=== PATIENT | male | born 2000 | race Caucasian/White ===

== ENCOUNTER 2019-01-23 14:36 | Inpatient (IN) | payer SELFPAY ==
[~2019-01-23] VITALS: Ht 170.2 cm; Wt 117.9 kg
--- NOTE | 2019-01-23 15:52 | PHYS DOC ---
Past Medical History Past Medical History: Diabetes-Type II Past Surgical History: No Surgical History Alcohol Use: None Drug Use: None Adult General Chief Complaint Chief Complaint: SKIN RASH/ABSCESS HPI HPI Patient is a 18 year old male who presents to the ER with complaints of tailbone pain and abscess for the last week. PT states he has had an abscess in this area before, approximately 1 year ago. Pt denies any fever, nausea, vomiting, diarrhea, cough, or shortness of breath. He reports that he is a type 2 diabetic and that his sugars have been consistently below 130 recently. He states that the pain is a 10/10 if any pressure is applied to his coccyx. Review of Systems Review of Systems Constitutional: Denies fever or chills [] Eyes: Denies change in visual acuity, redness, or eye pain [] HENT: Denies nasal congestion or sore throat [] Respiratory: Denies cough or shortness of breath [] Cardiovascular: No additional information not addressed in HPI [] GI: Denies abdominal pain, nausea, vomiting, or diarrhea [] : Denies dysuria or hematuria [] Musculoskeletal: Denies back pain or joint pain [] Integument: See HPI Neurologic: Denies headache Endocrine: Denies polyuria or polydipsia [] Complete systems were reviewed and found to be within normal limits, except as documented in this note. Current Medications Current Medications Current Medications Medications (Trade) Dose Ordered Sig/[facility] Start Time Stop Time Status Last Admin Dose Admin Ceftriaxone Sodium (Rocephin) 1 gm 1X ONCE 01/23/19 16:45 01/23/19 16:46 DC 01/23/19 17:10 1 GM Allergies Allergies Allergies Coded Allergies Type Severity Reaction Last Updated Verified No Known Drug Allergies 01/23/19 No Physical Exam Physical Exam Constitutional: Well developed, well nourished, no acute distress, non-toxic appearance, obese. [] HENT: Normocephalic, atraumatic, bilateral external ears normal, oropharynx moist, no oral exudates, nose normal. [] Eyes: conjunctiva normal, no discharge. [] Neck: Normal range of motion, no stridor. [] Cardiovascular:Heart rate regular rhythm Lungs & Thorax: Bilateral breath sounds clear to auscultation [] Skin: Warm, dry, no rash; erythema, warmth, and tenderness to palpation over pilonidal sinus consistent with pilonidal abscess Back: No tenderness Extremities: No cyanosis, ROM intact, no edema. [] Neurologic: Alert and oriented X 3, no focal deficits noted. [] Psychologic: Affect normal, judgement normal, mood normal. [] Current Patient Data Vital Signs Vital Signs Date Time Temp Pulse Resp B/P (MAP) Pulse Ox O2 Delivery O2 Flow Rate FiO2 01/23/19 15:00 98.2 88 15 123/86 (98) 97 Room Air 98.2 EKG EKG [] Radiology/Procedures Radiology/Procedures [] Course & Med Decision Making Course & Med Decision Making Pertinent Labs and Imaging studies reviewed. (See chart for details) dx: pilonidal abscess 1615- Spoke with Dr. Sharma will admit patient for pilonidal cyst, advised that there are pending CBC and BMP results, will order 1 gm IV rocephin and surgical consult. [] Dragon Disclaimer Dragon Disclaimer This electronic medical record was generated, in whole or in part, using a voice recognition dictation system. Departure Departure Impression: Primary Impression: Pilonidal abscess Disposition: ADMITTED INPATIENT Admitting Physician: FAYE (FARHAT) Condition: STABLE Referrals: NO PCP (PCP) FLORENCE GALLEGO JEEP MECH[employer]IC Jan 23, 2019 15:52
[2019-01-23] MEDS ORDERED: cefTRIAXone IV Push 1 GM VIAL. IVP ONE (16:45)
--- NOTE | 2019-01-23 17:35 | PDOC1 ---
History and Physical Date of Admission Date of Admission DATE: 01/23/19 TIME: 17:35 Past Medical History Past Medical History Past Medical History Past Medical History Past Medical History: Diabetes-Type II Past Surgical History: No Surgical History Alcohol Use: None Drug Use: None family hx obesity Family History Family History: High Cholestrol, Hypertension Social History Smoke: No ALCOHOL: none Drugs: None Current Problem List Problem List Problems Medical Problems: (1) Pilonidal abscess Status: Acute Current Medications Current Medications Current Medications Ceftriaxone Sodium (Rocephin) 1 gm 1X ONCE IVP Last administered on 01/23/19at 17:10; Start 01/23/19 at 16:45; Stop 01/23/19 at 16:46; Status DC Allergies Allergies: Coded Allergies: No Known Drug Allergies (Unverified , 01/23/19) ROS Review of System Review of Systems Review of Systems Constitutional: Denies fever or chills [] Eyes: Denies change in visual acuity, redness, or eye pain [] HENT: Denies nasal congestion or sore throat [] Respiratory: Denies cough or shortness of breath [] Cardiovascular: No additional information not addressed in HPI [] GI: Denies abdominal pain, nausea, vomiting, or diarrhea [] : Denies dysuria or hematuria [] Musculoskeletal: Denies back pain or joint pain [] Integument: See HPI Neurologic: Denies headache Endocrine: Denies polyuria or polydipsia [] 14 PT systems were reviewed and found to be within normal limits, except as documented Physical Exam Physical Exam Physical Exam Physical Exam Constitutional: Well developed, well nourished, no acute distress, non-toxic appearance, obese. [] HENT: Normocephalic, atraumatic, bilateral external ears normal, oropharynx moist, no oral exudates, nose normal. [] Eyes: conjunctiva normal, no discharge. [] Neck: Normal range of motion, no stridor. [] Cardiovascular:Heart rate regular rhythm Lungs & Thorax: Bilateral breath sounds clear to auscultation [] Skin: Warm, dry, no rash; erythema, warmth, and tenderness to palpation over pilonidal sinus consistent with pilonidal abscess Back: No tenderness Extremities: No cyanosis, ROM intact, no edema. [] Neurologic: Alert and oriented X 3, no focal deficits noted. [] Psychologic: Affect normal, judgement normal, mood normal. [] Vitals Vitals Vital Signs Date Time Temp Pulse Resp B/P (MAP) Pulse Ox O2 Delivery O2 Flow Rate FiO2 01/23/19 15:00 98.2 88 15 123/86 (98) 97 Room Air 98.2 VTE Prophylaxis Ordered VTE Prophylaxis Devices: Yes VTE Pharmacological Prophylaxi: Yes Assessment/Plan Assessment/Plan Impression: Pilonidal abscess DIABETES Morbid obesity ADMITTED iv rocephin gen surgery consult ss insulin dvt prophylaxis NISA DOUGHERTY MD Jan 23, 2019 17:35
[2019-01-23 17:47] LABS: CALCIUM 9.8 mg/dL (8.5-10.1); CREATININE 0.9 mg/dL (0.7-1.3); GFR 107.6; POTASSIUM 3.9 mmol/L (3.5-5.1)
[2019-01-23 18:08] LABS: BASO % 1 % (0-3); EOS % 1 % (0-3); HEMATOCRIT 49.9 % (39.0-53.0); HEMOGLOBIN 17.6 g/dL (13.0-17.5); LYMPH # 1.6 x10^3/uL (1.0-4.8); LYMPH % 19 % (24-48); MEAN CORPUSCULAR HEMOGLOBIN 32 pg (25-35); MEAN CORPUSCULAR HGB CONC 35 g/dL (31-37); MEAN CORPUSCULAR VOLUME 90 fL (79-100); MONO # 0.8 x10^3/uL (0.0-1.1); MONO % 10 % (0-9); NEUT # 6.1 x10^3uL (1.8-7.7); NEUT % 70 % (31-73); PLATELET COUNT 151 x10^3/uL (140-400); RED BLOOD COUNT 5.55 x10^6/uL (4.30-5.70); RED CELL DISTRIBUTION WIDTH 12.8 % (11.5-14.5); WHITE BLOOD COUNT 8.6 x10^3/uL (4.0-11.0)
--- NOTE | 2019-01-23 18:24 | NUR ---
Pt placed in room 438 and instructed in use of call light and room controls. I paged Dr Lima who said to go ahead and feed him tonight and make him NPO at midnight.
[2019-01-23] MEDS ORDERED: HYDROcodone/APAP 5/325MG 1 TAB TABLET PO ONE (19:00)
[2019-01-23 19:30] VITALS: BP 122/63
--- NOTE | 2019-01-23 20:23 | NUR ---
NURSING ASSESSMENT NOTE PT HAS BEEN DIAGNOSED WITH SLEEP APNEA. HE DID USE A CPAP MACHINE BUT IT WAS DAMAGED AND HAS NOT BEEN REPLACED. Addendum: 01/23/19 at 2031 by Halina Archuleta RN Amended: Links added.
[2019-01-23] MEDS ORDERED: guaiFENesin ORAL 200 MG/10 ML LIQUID. PO PRN (20:30)
[2019-01-23] MEDS ORDERED: cloNIDine HCL 0.1 MG TABLET PO PRN (20:30)
[2019-01-23] MEDS ORDERED: LORazepam 0.5 MG TABLET PO PRN (20:30)
[2019-01-23] MEDS ORDERED: ALBUTEROL SULFATE 2.5 MG/3 ML NEBU. NEB PRN (20:30)
[2019-01-23] MEDS ORDERED: SODIUM PHOSPHATES 19/7GM 133 ML ENEMA. PR PRN (20:30)
[2019-01-23] MEDS ORDERED: MAG HYDROX/ALUMINUM HYD/SIMETH 30 ML ORAL.SUSP PO PRN (20:30)
[2019-01-23] MEDS ORDERED: DOCUSATE SODIUM 100 MG CAPSULE. PO PRN (20:30)
[2019-01-23] MEDS ORDERED: ACETAMINOPHEN 325 MG TABLET. PO PRN (20:30)
[2019-01-23] MEDS ORDERED: ONDANSETRON PF 4 MG/2 ML VIAL. IV PRN (20:30)
[2019-01-23] MEDS ORDERED: METF500T16 PO (20:33)
[2019-01-23] MEDS: IV NORMAL SALINE 1000ML BAG 1,000 ML IV SCH (23:12)
[2019-01-23] MEDS: HYDROcodone/APAP 7.5/325MG 1 TAB TABLET PO PRN (23:12)
[2019-01-23 23:36] VITALS: BP 127/64
[2019-01-24] VITALS (12 sets, daily range): BP systolic 106–141; BP diastolic 46–74
[2019-01-24 04:19] LABS: BASO % 0 % (0-3); EOS # 0.1 x10^3/uL (0.0-0.7); EOS % 1 % (0-3); HEMATOCRIT 48.5 % (39.0-53.0); HEMOGLOBIN 17.2 g/dL (13.0-17.5); LYMPH # 2.1 x10^3/uL (1.0-4.8); LYMPH % 26 % (24-48); MEAN CORPUSCULAR HEMOGLOBIN 32 pg (25-35); MEAN CORPUSCULAR HGB CONC 35 g/dL (31-37); MEAN CORPUSCULAR VOLUME 90 fL (79-100); MONO % 12 % (0-9); NEUT # 5.1 x10^3uL (1.8-7.7); NEUT % 62 % (31-73); PLATELET COUNT 153 x10^3/uL (140-400); RED BLOOD COUNT 5.38 x10^6/uL (4.30-5.70); RED CELL DISTRIBUTION WIDTH 12.8 % (11.5-14.5); WHITE BLOOD COUNT 8.2 x10^3/uL (4.0-11.0)
[2019-01-24 04:29] LABS: CALCIUM 9.3 mg/dL (8.5-10.1); GFR 95.3; POTASSIUM 3.9 mmol/L (3.5-5.1)
[2019-01-24] MEDS: HYDROcodone/APAP 7.5/325MG 1 TAB TABLET PO PRN (05:38)
[2019-01-24] MEDS: IV NORMAL SALINE 1000ML BAG 1,000 ML IV SCH ×3 (07:00→17:00)
[2019-01-24] MEDS ORDERED: ENOXAPARIN 40 MG/0.4 ML SYRINGE. SQ SCH (09:00)
[2019-01-24] MEDS ORDERED: BUPIVAC MPF-EPI 0.5%-1:200000 30 ML VIAL. ONE (09:13)
[2019-01-24] MEDS ORDERED: IV RINGERS,LACTATED 1000ML 1,000 ML IV SCH (09:48)
--- NOTE | 2019-01-24 09:57 | PDOC2 ---
CONSULT Date of Consult Date of Consult DATE: 01/24/19 TIME: 09:50 Reason for Consult Reason for Consult: pilonidal cyst abscess Referring Physician Referring Physician: Zachary Identification/Chief Complaint Chief Complaint superior gluteal cleft pain Source Source: Chart review, Patient History of Present Illness Reason for Visit: 18 yo M with superior gluteal cleft pain and mass. Present previously and seen at [facility] ER and prescribed abx, with resolution. However, recurred and pt has noted significant pain and not been able to do activity. Notes not eating for two days secondary not being able to move. Past Medical History Endocrine: Diabetes (takes metformin) Past Surgical History Past Surgical History: Other (Extensive fracture of BUE as child) Family History Family History: High Cholestrol, Hypertension Social History No ALCOHOL: none Drugs: None Current Problem List Problem List Problems Medical Problems: (1) Pilonidal abscess Status: Acute Current Medications Current Medications Current Medications Ceftriaxone Sodium (Rocephin) 1 gm 1X ONCE IVP Last administered on 01/23/19at 17:10; Start 01/23/19 at 16:45; Stop 01/23/19 at 16:46; Status DC Acetaminophen/ Hydrocodone Bitart (Lortab 5/325) 1 tab 1X ONCE PO Last admin istered on 01/23/19at 18:40; Start 01/23/19 at 19:00; Stop 01/23/19 at 19:01; Status DC Sodium Chloride 1,000 ml @ 100 mls/hr Q10H IV Last administered on 01/23/19at 23:12; Start 01/23/19 at 21:00 Ondansetron HCl (Zofran) 4 mg PRN Q4HRS PRN IV NAUSEA/VOMITING 1ST CHOICE; Start 01/23/19 at 20:30 Acetaminophen (Tylenol) 650 mg PRN Q4HRS PRN PO TEMP OVER 100.4F OR MILD PAIN; Start 01/23/19 at 20:30 Al Hydroxide/Mg Hydroxide (Mylanta Plus Xs) 30 ml PRN DAILY PRN PO HEARTBURN / GAS; Start 01/23/19 at 20:30 Clonidine HCl (Catapres) 0.1 mg PRN Q6HRS PRN PO SBP>160 OR DBP>90; Start 01/23/19 at 20:30 Sodium Monofluorophosphate (Fleet Adult) 133 ml PRN DAILY PRN ID CONSTIPATION 2ND CHOICE; Start 01/23/19 at 20:30 Docusate Sodium (Colace) 100 mg PRN BID PRN PO CONSTIPATION 1ST CHOICE; Start 01/23/19 at 20:30 Albuterol Sulfate (Ventolin Neb Soln) 2.5 mg PRN Q4HRS PRN NEB SHORTNESS OF BREATH; Start 01/23/19 at 20:30 Guaifenesin (Robitussin) 200 mg PRN Q4HRS PRN PO COUGH 1ST CHOICE; Start 01/23/19 at 20:30 Lorazepam (Ativan) 0.5 mg PRN Q4HRS PRN PO ANXIETY / AGITATION; Start 01/23/19 at 20:30 Enoxaparin Sodium (Lovenox 40mg Syringe) 40 mg DAILY SQ ; Start 01/24/19 at 09:00 Acetaminophen/ Hydrocodone Bitart (Lortab 7.5/325) 1 tab PRN Q6HRS PRN PO SEVERE PAIN 7-10 Last administered on 01/24/19at 05:38; Start 01/23/19 at 23:00 Active Scripts Active Reported Metformin Hcl 500 Mg Tablet 500 Mg PO BIDWMEALS Allergies Allergies: Coded Allergies: No Known Drug Allergies (Unverified , 01/23/19) ROS Skin: Yes Other (skin pain and abscess as above) Physical Exam General: Alert, Oriented X3, Cooperative, mild distress, Other (laying on side, secondary to pain, morbid obesity) HEENT: Atraumatic Lungs: Normal air movement Abdomen: Soft, No tenderness Skin: Other (3 cm erythematous, fluctuant mass in superior gluteal cleft) Vitals VITALS Vital Signs Date Time Temp Pulse Resp B/P (MAP) Pulse Ox O2 Delivery O2 Flow Rate FiO2 01/24/19 07:00 98.2 85 18 121/64 (83) 96 Room Air 98.2 Labs Labs Laboratory Tests Test 01/23/19 17:25 01/23/19 21:06 01/24/19 04:00 White Blood Count 8.6 x10^3/uL (4.0-11.0) 8.2 x10^3/uL (4.0-11.0) Red Blood Count 5.55 x10^6/uL (4.30-5.70) 5.38 x10^6/uL (4.30-5.70) Hemoglobin 17.6 g/dL (13.0-17.5) 17.2 g/dL (13.0-17.5) Hematocrit 49.9 % (39.0-53.0) 48.5 % (39.0-53.0) Mean Corpuscular Volume 90 fL (79-100) 90 fL (79-100) Mean Corpuscular Hemoglobin 32 pg (25-35) 32 pg (25-35) Mean Corpuscular Hemoglobin Concent 35 g/dL (31-37) 35 g/dL (31-37) Red Cell Distribution Width 12.8 % (11.5-14.5) 12.8 % (11.5-14.5) Platelet Count 151 x10^3/uL (140-400) 153 x10^3/uL (140-400) Neutrophils (%) (Auto) 70 % (31-73) 62 % (31-73) Lymphocytes (%) (Auto) 19 % (24-48) 26 % (24-48) Monocytes (%) (Auto) 10 % (0-9) 12 % (0-9) Eosinophils (%) (Auto) 1 % (0-3) 1 % (0-3) Basophils (%) (Auto) 1 % (0-3) 0 % (0-3) Neutrophils # (Auto) 6.1 x10^3uL (1.8-7.7) 5.1 x10^3uL (1.8-7.7) Lymphocytes # (Auto) 1.6 x10^3/uL (1.0-4.8) 2.1 x10^3/uL (1.0-4.8) Monocytes # (Auto) 0.8 x10^3/uL (0.0-1.1) 1.0 x10^3/uL (0.0-1.1) Eosinophils # (Auto) 0.0 x10^3/uL (0.0-0.7) 0.1 x10^3/uL (0.0-0.7) Basophils # (Auto) 0.0 x10^3/uL (0.0-0.2) 0.0 x10^3/uL (0.0-0.2) Sodium Level 138 mmol/L (136-145) 137 mmol/L (136-145) Potassium Level 3.9 mmol/L (3.5-5.1) 3.9 mmol/L (3.5-5.1) Chloride Level 102 mmol/L (98-107) 101 mmol/L (98-107) Carbon Dioxide Level 26 mmol/L (21-32) 27 mmol/L (21-32) Anion Gap 10 (6-14) 9 (6-14) Blood Urea Nitrogen 11 mg/dL (8-26) 13 mg/dL (8-26) Creatinine 0.9 mg/dL (0.7-1.3) 1.0 mg/dL (0.7-1.3) Estimated GFR (Cockcroft-Gault) 107.6 95.3 Glucose Level 161 mg/dL (70-99) 156 mg/dL (70-99) Calcium Level 9.8 mg/dL (8.5-10.1) 9.3 mg/dL (8.5-10.1) Glucose (Fingerstick) 170 mg/dL (70-99) Laboratory Tests Test 01/23/19 17:25 01/23/19 21:06 01/24/19 04:00 White Blood Count 8.6 x10^3/uL (4.0-11.0) 8.2 x10^3/uL (4.0-11.0) Red Blood Count 5.55 x10^6/uL (4.30-5.70) 5.38 x10^6/uL (4.30-5.70) Hemoglobin 17.6 g/dL (13.0-17.5) 17.2 g/dL (13.0-17.5) Hematocrit 49.9 % (39.0-53.0) 48.5 % (39.0-53.0) Mean Corpuscular Volume 90 fL (79-100) 90 fL (79-100) Mean Corpuscular Hemoglobin 32 pg (25-35) 32 pg (25-35) Mean Corpuscular Hemoglobin Concent 35 g/dL (31-37) 35 g/dL (31-37) Red Cell Distribution Width 12.8 % (11.5-14.5) 12.8 % (11.5-14.5) Platelet Count 151 x10^3/uL (140-400) 153 x10^3/uL (140-400) Neutrophils (%) (Auto) 70 % (31-73) 62 % (31-73) Lymphocytes (%) (Auto) 19 % (24-48) 26 % (24-48) Monocytes (%) (Auto) 10 % (0-9) 12 % (0-9) Eosinophils (%) (Auto) 1 % (0-3) 1 % (0-3) Basophils (%) (Auto) 1 % (0-3) 0 % (0-3) Neutrophils # (Auto) 6.1 x10^3uL (1.8-7.7) 5.1 x10^3uL (1.8-7.7) Lymphocytes # (Auto) 1.6 x10^3/uL (1.0-4.8) 2.1 x10^3/uL (1.0-4.8) Monocytes # (Auto) 0.8 x10^3/uL (0.0-1.1) 1.0 x10^3/uL (0.0-1.1) Eosinophils # (Auto) 0.0 x10^3/uL (0.0-0.7) 0.1 x10^3/uL (0.0-0.7) Basophils # (Auto) 0.0 x10^3/uL (0.0-0.2) 0.0 x10^3/uL (0.0-0.2) Sodium Level 138 mmol/L (136-145) 137 mmol/L (136-145) Potassium Level 3.9 mmol/L (3.5-5.1) 3.9 mmol/L (3.5-5.1) Chloride Level 102 mmol/L (98-107) 101 mmol/L (98-107) Carbon Dioxide Level 26 mmol/L (21-32) 27 mmol/L (21-32) Anion Gap 10 (6-14) 9 (6-14) Blood Urea Nitrogen 11 mg/dL (8-26) 13 mg/dL (8-26) Creatinine 0.9 mg/dL (0.7-1.3) 1.0 mg/dL (0.7-1.3) Estimated GFR (Cockcroft-Gault) 107.6 95.3 Glucose Level 161 mg/dL (70-99) 156 mg/dL (70-99) Calcium Level 9.8 mg/dL (8.5-10.1) 9.3 mg/dL (8.5-10.1) Glucose (Fingerstick) 170 mg/dL (70-99) Assessment/Plan Assessment/Plan pilonidal cyst abscess TO OR for incision and drainage R/R/B/A d/w pt. Risks, including, but not limited to: bleeding, infection, damion ge to surrounding structures, risk of anesthesia, need for secondary healing, risk of recurrence. He has watched videos. He appears to understand, his questions are answered and he elects to proceed. Thanks for consult! RICHELLE FORD MD Jan 24, 2019 09:57
[2019-01-24] MEDS ORDERED: fentaNYL PF VIAL 100 MCG/2 ML VIAL IV PRN ×2 (10:00)
[2019-01-24] MEDS ORDERED: ONDANSETRON PF 4 MG/2 ML VIAL. IV PRN ×2 (10:00→11:30)
[2019-01-24] MEDS ORDERED: LIDOCAINE 1% PF 2 ML VIAL. ID PRN (10:00)
[2019-01-24] MEDS ORDERED: MORPHINE SULFATE 2 MG/ML VIAL. IV PRN ×2 (10:00)
[2019-01-24] MEDS ORDERED: PROCHLORPERAZINE 10 MG/2 ML VIAL. IV PRN (10:00)
[2019-01-24] MEDS ORDERED: HYDROmorphone 2 MG/ML VIAL IV PRN (10:00)
[2019-01-24] MEDS ORDERED: fentaNYL PF VIAL 100 MCG/2 ML VIAL ONE (10:25)
[2019-01-24] MEDS ORDERED: ROCURONIUM 50 MG/5 ML VIAL. ONE (10:25)
[2019-01-24] MEDS ORDERED: ONDANSETRON PF 4 MG/2 ML VIAL. ONE (10:27)
[2019-01-24] MEDS ORDERED: DEXAMETHASONE SOD PHOS 4 MG/ML VIAL ONE (10:27)
[2019-01-24] MEDS ORDERED: PROPOFOL 20 ML IV ONE (10:28)
[2019-01-24] MEDS ORDERED: LIDOCAINE 2% PF 5 ML VIAL. ONE (10:28)
[2019-01-24] MEDS ORDERED: NEOSTIGMINE METHYLSULFATE 5 MG/5 ML SYRINGE. ONE (11:21)
[2019-01-24] MEDS ORDERED: GLYCOPYRROLATE 1 MG/5 ML VIAL. ONE (11:21)
[2019-01-24] MEDS ORDERED: 0.9 % SODIUM CHLORIDE 10 ML DISP.SYRIN. IV PRN (11:30)
[2019-01-24] MEDS ORDERED: NALOXONE 0.4 MG/ML VIAL. IV PRN (11:30)
[2019-01-24] MEDS ORDERED: HYDROcodone/APAP 5/325MG 1 TAB TABLET PO PRN (11:30)
--- NOTE | 2019-01-24 11:35 | PDOC4 ---
OPERATIVE NOTE Date: Date: Jan 24, 2019 Pre-Op Diagnosis: Pilonidal abscess Post-Op Diagnosis: same Procedure Performed: Incision and drainage of pilonidal abscess Surgeon: Chiki Ford Anesthesia Type: GETA plus local Blood Loss: 50 Specimans Obtained: abscess cavity and cultures. Findings: 3 cm abscess cavity with purulent brownish discharge Complications: none Operative Note: After obtaining informed consent, patient was taken to OR, induced under GETA and prepped in the usual fashion and placed in a left side down decub position. In the superior gluteal cleft, an eliptical incision was made with cautery, excising the overlying roof of the cavity and sent to pathology. Cultures obtained. Large amount of purulent material evacuated. Copious irrigation. Packed with iodoform gauze after hemostasis obtained with cautery. Dressing placed. Patient tolerated procedure well and sent to PACU in stable condition. All counts correct. Wound class is dirty. RICHELLE FORD MD Jan 24, 2019 11:35
[2019-01-24] MEDS: ENOXAPARIN 40 MG/0.4 ML SYRINGE. SQ SCH (12:00)
[2019-01-24] MEDS ORDERED: SEVOFLURANE 31 TO 60 MINUTES. IH ONE (12:01)
--- NOTE | 2019-01-24 13:18 | PDOC ---
PROGRESS NOTES Chief Complaint Chief Complaint Pilonidal abscess DIABETES 2 Morbid obesity, BMI 41 History of Present Illness History of Present Illness Incision and drainage of pilonidal abscess today, Dr. Lima cont IV rocephin cx pending pain control OOB if able Vitals Vitals Vital Signs Date Time Temp Pulse Resp B/P (MAP) Pulse Ox O2 Delivery O2 Flow Rate FiO2 01/24/19 12:40 74 18 107/53 (71) 93 Room Air 01/24/19 11:55 5 01/24/19 11:39 97.4 97.4 Physical Exam General: Alert, Oriented X3, Cooperative, No acute distress, mild distress, Other (laying on side, secondary to pain, morbid obesity) Abdomen: Soft, No tenderness Skin: Other (3 cm erythematous, fluctuant mass in superior gluteal cleft) Labs LABS Laboratory Tests Test 01/23/19 17:25 01/23/19 21:06 01/24/19 04:00 01/24/19 10:50 White Blood Count 8.6 x10^3/uL (4.0-11.0) 8.2 x10^3/uL (4.0-11.0) Red Blood Count 5.55 x10^6/uL (4.30-5.70) 5.38 x10^6/uL (4.30-5.70) Hemoglobin 17.6 g/dL (13.0-17.5) 17.2 g/dL (13.0-17.5) Hematocrit 49.9 % (39.0-53.0) 48.5 % (39.0-53.0) Mean Corpuscular Volume 90 fL (79-100) 90 fL (79-100) Mean Corpuscular Hemoglobin 32 pg (25-35) 32 pg (25-35) Mean Corpuscular Hemoglobin Concent 35 g/dL (31-37) 35 g/dL (31-37) Red Cell Distribution Width 12.8 % (11.5-14.5) 12.8 % (11.5-14.5) Platelet Count 151 x10^3/uL (140-400) 153 x10^3/uL (140-400) Neutrophils (%) (Auto) 70 % (31-73) 62 % (31-73) Lymphocytes (%) (Auto) 19 % (24-48) 26 % (24-48) Monocytes (%) (Auto) 10 % (0-9) 12 % (0-9) Eosinophils (%) (Auto) 1 % (0-3) 1 % (0-3) Basophils (%) (Auto) 1 % (0-3) 0 % (0-3) Neutrophils # (Auto) 6.1 x10^3uL (1.8-7.7) 5.1 x10^3uL (1.8-7.7) Lymphocytes # (Auto) 1.6 x10^3/uL (1.0-4.8) 2.1 x10^3/uL (1.0-4.8) Monocytes # (Auto) 0.8 x10^3/uL (0.0-1.1) 1.0 x10^3/uL (0.0-1.1) Eosinophils # (Auto) 0.0 x10^3/uL (0.0-0.7) 0.1 x10^3/uL (0.0-0.7) Basophils # (Auto) 0.0 x10^3/uL (0.0-0.2) 0.0 x10^3/uL (0.0-0.2) Sodium Level 138 mmol/L (136-145) 137 mmol/L (136-145) Potassium Level 3.9 mmol/L (3.5-5.1) 3.9 mmol/L (3.5-5.1) Chloride Level 102 mmol/L (98-107) 101 mmol/L (98-107) Carbon Dioxide Level 26 mmol/L (21-32) 27 mmol/L (21-32) Anion Gap 10 (6-14) 9 (6-14) Blood Urea Nitrogen 11 mg/dL (8-26) 13 mg/dL (8-26) Creatinine 0.9 mg/dL (0.7-1.3) 1.0 mg/dL (0.7-1.3) Estimated GFR (Cockcroft-Gault) 107.6 95.3 Glucose Level 161 mg/dL (70-99) 156 mg/dL (70-99) Calcium Level 9.8 mg/dL (8.5-10.1) 9.3 mg/dL (8.5-10.1) Glucose (Fingerstick) 170 mg/dL (70-99) 154 mg/dL (70-99) Assessment and Plan Assessmemt and Plan Problems Medical Problems: (1) Pilonidal abscess Status: Acute Comment Review of Relevant I have reviewed the following items dania (where applicable) has been applied. Labs Laboratory Tests Test 01/23/19 17:25 01/23/19 21:06 01/24/19 04:00 01/24/19 10:50 White Blood Count 8.6 x10^3/uL (4.0-11.0) 8.2 x10^3/uL (4.0-11.0) Red Blood Count 5.55 x10^6/uL (4.30-5.70) 5.38 x10^6/uL (4.30-5.70) Hemoglobin 17.6 g/dL (13.0-17.5) 17.2 g/dL (13.0-17.5) Hematocrit 49.9 % (39.0-53.0) 48.5 % (39.0-53.0) Mean Corpuscular Volume 90 fL (79-100) 90 fL (79-100) Mean Corpuscular Hemoglobin 32 pg (25-35) 32 pg (25-35) Mean Corpuscular Hemoglobin Concent 35 g/dL (31-37) 35 g/dL (31-37) Red Cell Distribution Width 12.8 % (11.5-14.5) 12.8 % (11.5-14.5) Platelet Count 151 x10^3/uL (140-400) 153 x10^3/uL (140-400) Neutrophils (%) (Auto) 70 % (31-73) 62 % (31-73) Lymphocytes (%) (Auto) 19 % (24-48) 26 % (24-48) Monocytes (%) (Auto) 10 % (0-9) 12 % (0-9) Eosinophils (%) (Auto) 1 % (0-3) 1 % (0-3) Basophils (%) (Auto) 1 % (0-3) 0 % (0-3) Neutrophils # (Auto) 6.1 x10^3uL (1.8-7.7) 5.1 x10^3uL (1.8-7.7) Lymphocytes # (Auto) 1.6 x10^3/uL (1.0-4.8) 2.1 x10^3/uL (1.0-4.8) Monocytes # (Auto) 0.8 x10^3/uL (0.0-1.1) 1.0 x10^3/uL (0.0-1.1) Eosinophils # (Auto) 0.0 x10^3/uL (0.0-0.7) 0.1 x10^3/uL (0.0-0.7) Basophils # (Auto) 0.0 x10^3/uL (0.0-0.2) 0.0 x10^3/uL (0.0-0.2) Sodium Level 138 mmol/L (136-145) 137 mmol/L (136-145) Potassium Level 3.9 mmol/L (3.5-5.1) 3.9 mmol/L (3.5-5.1) Chloride Level 102 mmol/L (98-107) 101 mmol/L (98-107) Carbon Dioxide Level 26 mmol/L (21-32) 27 mmol/L (21-32) Anion Gap 10 (6-14) 9 (6-14) Blood Urea Nitrogen 11 mg/dL (8-26) 13 mg/dL (8-26) Creatinine 0.9 mg/dL (0.7-1.3) 1.0 mg/dL (0.7-1.3) Estimated GFR (Cockcroft-Gault) 107.6 95.3 Glucose Level 161 mg/dL (70-99) 156 mg/dL (70-99) Calcium Level 9.8 mg/dL (8.5-10.1) 9.3 mg/dL (8.5-10.1) Glucose (Fingerstick) 170 mg/dL (70-99) 154 mg/dL (70-99) Laboratory Tests Test 01/23/19 17:25 01/23/19 21:06 01/24/19 04:00 01/24/19 10:50 White Blood Count 8.6 x10^3/uL (4.0-11.0) 8.2 x10^3/uL (4.0-11.0) Red Blood Count 5.55 x10^6/uL (4.30-5.70) 5.38 x10^6/uL (4.30-5.70) Hemoglobin 17.6 g/dL (13.0-17.5) 17.2 g/dL (13.0-17.5) Hematocrit 49.9 % (39.0-53.0) 48.5 % (39.0-53.0) Mean Corpuscular Volume 90 fL (79-100) 90 fL (79-100) Mean Corpuscular Hemoglobin 32 pg (25-35) 32 pg (25-35) Mean Corpuscular Hemoglobin Concent 35 g/dL (31-37) 35 g/dL (31-37) Red Cell Distribution Width 12.8 % (11.5-14.5) 12.8 % (11.5-14.5) Platelet Count 151 x10^3/uL (140-400) 153 x10^3/uL (140-400) Neutrophils (%) (Auto) 70 % (31-73) 62 % (31-73) Lymphocytes (%) (Auto) 19 % (24-48) 26 % (24-48) Monocytes (%) (Auto) 10 % (0-9) 12 % (0-9) Eosinophils (%) (Auto) 1 % (0-3) 1 % (0-3) Basophils (%) (Auto) 1 % (0-3) 0 % (0-3) Neutrophils # (Auto) 6.1 x10^3uL (1.8-7.7) 5.1 x10^3uL (1.8-7.7) Lymphocytes # (Auto) 1.6 x10^3/uL (1.0-4.8) 2.1 x10^3/uL (1.0-4.8) Monocytes # (Auto) 0.8 x10^3/uL (0.0-1.1) 1.0 x10^3/uL (0.0-1.1) Eosinophils # (Auto) 0.0 x10^3/uL (0.0-0.7) 0.1 x10^3/uL (0.0-0.7) Basophils # (Auto) 0.0 x10^3/uL (0.0-0.2) 0.0 x10^3/uL (0.0-0.2) Sodium Level 138 mmol/L (136-145) 137 mmol/L (136-145) Potassium Level 3.9 mmol/L (3.5-5.1) 3.9 mmol/L (3.5-5.1) Chloride Level 102 mmol/L (98-107) 101 mmol/L (98-107) Carbon Dioxide Level 26 mmol/L (21-32) 27 mmol/L (21-32) Anion Gap 10 (6-14) 9 (6-14) Blood Urea Nitrogen 11 mg/dL (8-26) 13 mg/dL (8-26) Creatinine 0.9 mg/dL (0.7-1.3) 1.0 mg/dL (0.7-1.3) Estimated GFR (Cockcroft-Gault) 107.6 95.3 Glucose Level 161 mg/dL (70-99) 156 mg/dL (70-99) Calcium Level 9.8 mg/dL (8.5-10.1) 9.3 mg/dL (8.5-10.1) Glucose (Fingerstick) 170 mg/dL (70-99) 154 mg/dL (70-99) Medications Current Medications Ceftriaxone Sodium (Rocephin) 1 gm 1X ONCE IVP Last administered on 01/23/19at 17:10; Start 01/23/19 at 16:45; Stop 01/23/19 at 16:46; Status DC Acetaminophen/ Hydrocodone Bitart (Lortab 5/325) 1 tab 1X ONCE PO Last administered on 01/23/19at 18:40; Start 01/23/19 at 19:00; Stop 01/23/19 at 19:01; Status DC Sodium Chloride 1,000 ml @ 100 mls/hr Q10H IV Last administered on 01/23/19at 23:12; Start 01/23/19 at 21:00 Ondansetron HCl (Zofran) 4 mg PRN Q4HRS PRN IV NAUSEA/VOMITING 1ST CHOICE; Start 01/23/19 at 20:30 Acetaminophen (Tylenol) 650 mg PRN Q4HRS PRN PO TEMP OVER 100.4F OR MILD PAIN; Start 01/23/19 at 20:30 Al Hydroxide/Mg Hydroxide (Mylanta Plus Xs) 30 ml PRN DAILY PRN PO HEARTBURN / GAS; Start 01/23/19 at 20:30 Clonidine HCl (Catapres) 0.1 mg PRN Q6HRS PRN PO SBP>160 OR DBP>90; Start 01/23/19 at 20:30 Sodium Monofluorophosphate (Fleet Adult) 133 ml PRN DAILY PRN [place] CONSTIPATION 2ND CHOICE; Start 01/23/19 at 20:30 Docusate Sodium (Colace) 100 mg PRN BID PRN PO CONSTIPATION 1ST CHOICE; Start 01/23/19 at 20:30 Albuterol Sulfate (Ventolin Neb Soln) 2.5 mg PRN Q4HRS PRN NEB SHORTNESS OF BREATH; Start 01/23/19 at 20:30 Guaifenesin (Robitussin) 200 mg PRN Q4HRS PRN PO COUGH 1ST CHOICE; Start 01/23/19 at 20:30 Lorazepam (Ativan) 0.5 mg PRN Q4HRS PRN PO ANXIETY / AGITATION; Start 01/23/19 at 20:30 Enoxaparin Sodium (Lovenox 40mg Syringe) 40 mg DAILY SQ ; Start 01/24/19 at 09:00 Acetaminophen/ Hydrocodone Bitart (Lortab 7.5/325) 1 tab PRN Q6HRS PRN PO SEVERE PAIN 7-10 Last administered on 01/24/19at 05:38; Start 01/23/19 at 23:00 Ondansetron HCl (Zofran) 4 mg PRN Q6HRS PRN IV NAUSEA/VOMITING; Start 01/24/19 at 10:00; Stop 01/24/19 at 20:00 Fentanyl Citrate (Fentanyl 2ml Vial) 25 mcg PRN Q5MIN PRN IV MILD PAIN 1-3; Start 01/24/19 at 10:00; Stop 01/24/19 at 20:00 Fentanyl Citrate (Fentanyl 2ml Vial) 50 mcg PRN Q5MIN PRN IV MODERATE TO SEVERE PAIN; Start 01/24/19 at 10:00; Stop 01/24/19 at 20:00 Morphine Sulfate (Morphine Sulfate) 1 mg PRN Q10MIN PRN IV SEVERE PAIN 7-10; Start 01/24/19 at 10:00; Stop 01/24/19 at 20:00 Ringer's Solution 1,000 ml @ 30 mls/hr Q24H IV Last administered on 01/24/19at 10:41; Start 01/24/19 at 09:48; Stop 01/24/19 at 21:47 Lidocaine HCl (Xylocaine-Mpf 1% 2ml Vial) 2 ml PRN 1X PRN ID PRIOR TO IV START; Start 01/24/19 at 10:00; Stop 01/24/19 at 20:00 Hydromorphone HCl (Dilaudid) 0.5 mg PRN Q10MIN PRN IV SEV PAIN, Second choice; Start 01/24/19 at 10:00; Stop 01/24/19 at 20:00 Prochlorperazine Edisylate (Compazine) 5 mg PACU PRN PRN IV NAUSEA, MRX1; Start 01/24/19 at 10:00; Stop 01/24/19 at 20:00 Cefazolin Sodium/ Dextrose 50 ml @ 100 mls/hr 1X PREOP IV ; Start 01/24/19 at 10:00; Stop 01/25/19 at 18:00 Morphine Sulfate (Morphine Sulfate) 2 mg PRN Q2HR PRN IV MODERATE TO SEVERE PAIN Last administered on 01/24/19at 10:28; Start 01/24/19 at 10:00 Bupivacaine HCl/ Epinephrine Bitart (Sensorcain-Mpf Epi 0.5%-1:[id number]) 30 ml STK-MED ONCE .ROUTE Last administered on 01/24/19at 11:13; Start 01/24/19 at 09:13; Stop 01/24/19 at 10:13; Status DC Fentanyl Citrate (Fentanyl 2ml Vial) 100 mcg STK-MED ONCE .ROUTE ; Start 01/24/19 at 10:25; Stop 01/24/19 at 10:26; Status DC Rocuronium [place] (Zemuron) 50 mg STK-MED ONCE .ROUTE ; Start 01/24/19 at 10:25; Stop 01/24/19 at 10:26; Status DC Dexamethasone Sodium Phosphate (Decadron) 4 mg STK-MED ONCE .ROUTE ; Start 01/24/19 at 10:27; Stop 01/24/19 at 10:28; Status DC Ondansetron HCl (Zofran) 4 mg STK-MED ONCE .ROUTE ; Start 01/24/19 at 10:27; Stop 01/24/19 at 10:28; Status DC Lidocaine HCl (Lidocaine Pf 2% Vial) 5 ml STK-MED ONCE .ROUTE ; Start 01/24/19 at 10:28; Stop 01/24/19 at 10:29; Status DC Propofol 20 ml @ As Directed STK-MED ONCE IV ; Start 01/24/19 at 10:28; Stop 01/24/19 at 10:29; Status DC Glycopyrrolate (Robinul) 1 mg STK-MED ONCE .ROUTE ; Start 01/24/19 at 11:21; Stop 01/24/19 at 11:22; Status DC Neostigmine Methylsulfate (Neostigmine Methylsulfate) 5 mg STK-MED ONCE .ROUTE ; Start 01/24/19 at 11:21; Stop 01/24/19 at 11:22; Status DC Enoxaparin Sodium (Lovenox 40mg Syringe) 40 mg Q24H SQ ; Start 01/24/19 at 12:00 Sodium Chloride (Normal Saline Flush) 3 ml QSHIFT PRN IV AFTER MEDS AND BLOOD DRAWS; Start 01/24/19 at 11:30 Acetaminophen/ Hydrocodone Bitart (Lortab 5/325) 1 tab PRN Q4HRS PRN PO MILD PAIN 1-3; Start 01/24/19 at 11:30 Naloxone HCl (Narcan) 0.4 mg PRN Q2MIN PRN IV SEE INSTRUCTIONS; Start 01/24/19 at 11:30 Sodium Chloride 1,000 ml @ 25 mls/hr Q24H IV ; Start 01/24/19 at 11:29 Senna/Docusate Sodium (Senna Plus) 1 tab BID PO ; Start 01/24/19 at 21:00 Ondansetron HCl (Zofran) 4 mg PRN Q6HRS PRN IV NAUESA, 1ST CHOICE; Start 01/24/19 at 11:30 Sevoflurane (Ultane) 30 ml STK-MED ONCE IH ; Start 01/24/19 at 12:01; Stop 01/24/19 at 12:02; Status DC Active Scripts Active Reported Metformin Hcl 500 Mg Tablet 500 Mg PO BIDWMEALS Vitals/I & O Vital Sign - Last 24 Hours 01/23/19 01/23/19 01/23/19 7/6/19 15:00 18:40 19:30 20:00 Temp 98.2 98.4 98.2 98.4 Pulse 88 85 Resp 15 20 18 B/P (MAP) 123/86 (98) 122/63 (82) Pulse Ox 97 95 O2 Delivery Room Air Room Air Room Air Room Air 01/23/19 01/23/19 01/24/19 01/24/19 21:05 23:36 03:40 07:00 Temp 98.1 98.3 98.2 98.1 98.3 98.2 Pulse 83 76 85 Resp 20 18 18 B/P (MAP) 127/64 (85) 124/74 (91) 121/64 (83) Pulse Ox 95 98 96 96 O2 Delivery Room Air Room Air Room Air Room Air 01/24/19 01/24/19 01/24/19 01/24/19 10:28 10:43 11:39 11:39 Temp 98.6 97.4 98.6 97.4 Pulse 74 74 Resp 20 20 20 B/P (MAP) 120/67 119/63 Pulse Ox 97 95 O2 Delivery Room Air Room Air Mask Simple Mask O2 Flow Rate 10 10 01/24/19 01/24/19 01/24/19 11:55 12:10 12:40 Pulse 82 74 74 Resp 20 20 18 B/P (MAP) 113/54 114/65 107/53 (71) Pulse Ox 95 93 O2 Delivery Simple Mask Room Air Room Air O2 Flow Rate 5 Intake and Output 01/23/19 01/23/19 01/24/19 14:59 22:59 06:59 Intake Total 360 ml Balance 360 ml MAXIMINO STRONG MD Jan 24, 2019 13:18
[2019-01-24] MEDS: INSULIN LISPRO 300 UNITS/3 ML INSULN.PEN. SQ SCH (18:15)
[2019-01-24] MEDS ORDERED: DEXTROSE 50% 25 GM / 50ML DISP.SYRIN. IV PRN (18:15)
[2019-01-24] MEDS: SENNOSIDES/DOCUSATE 8.6/50MG TABLET. PO SCH (21:20)
[2019-01-25] MEDS: IV NORMAL SALINE 1000ML BAG 1,000 ML IV SCH ×3 (03:00→12:03)
[2019-01-25 03:27] VITALS: BP 126/69
[2019-01-25 07:00] VITALS: BP 120/72
[2019-01-25] MEDS: INSULIN LISPRO 300 UNITS/3 ML INSULN.PEN. SQ SCH ×2 (08:00→12:00)
[2019-01-25] MEDS: SENNOSIDES/DOCUSATE 8.6/50MG TABLET. PO SCH (08:27)
--- NOTE | 2019-01-25 09:55 | PDOC ---
SURGICAL PROGRESS NOTE Subjective pain improved no n/v Vital Signs Vital Signs Date Time Temp Pulse Resp B/P (MAP) Pulse Ox O2 Delivery O2 Flow Rate FiO2 01/25/19 08:00 Room Air 98.0 01/25/19 07:00 97.6 61 20 120/72 (88) 97.6 01/25/19 03:27 97 I&O Intake and Output 01/25/19 06:59 Intake Total 2990 ml Output Total 10 ml Balance 2980 ml Intake Oral 740 ml IV Total 2250 ml Output Estimated Blood Loss 10 ml # Voids 4 General: Alert, Oriented X3, Cooperative, No acute distress Skin: Other (wound packed, minimal drainage ) Labs Laboratory Tests Test 01/23/19 17:25 01/23/19 21:06 01/24/19 04:00 01/24/19 10:50 White Blood Count 8.6 x10^3/uL (4.0-11.0) 8.2 x10^3/uL (4.0-11.0) Red Blood Count 5.55 x10^6/uL (4.30-5.70) 5.38 x10^6/uL (4.30-5.70) Hemoglobin 17.6 g/dL (13.0-17.5) 17.2 g/dL (13.0-17.5) Hematocrit 49.9 % (39.0-53.0) 48.5 % (39.0-53.0) Mean Corpuscular Volume 90 fL (79-100) 90 fL (79-100) Mean Corpuscular Hemoglobin 32 pg (25-35) 32 pg (25-35) Mean Corpuscular Hemoglobin Concent 35 g/dL (31-37) 35 g/dL (31-37) Red Cell Distribution Width 12.8 % (11.5-14.5) 12.8 % (11.5-14.5) Platelet Count 151 x10^3/uL (140-400) 153 x10^3/uL (140-400) Neutrophils (%) (Auto) 70 % (31-73) 62 % (31-73) Lymphocytes (%) (Auto) 19 % (24-48) 26 % (24-48) Monocytes (%) (Auto) 10 % (0-9) 12 % (0-9) Eosinophils (%) (Auto) 1 % (0-3) 1 % (0-3) Basophils (%) (Auto) 1 % (0-3) 0 % (0-3) Neutrophils # (Auto) 6.1 x10^3uL (1.8-7.7) 5.1 x10^3uL (1.8-7.7) Lymphocytes # (Auto) 1.6 x10^3/uL (1.0-4.8) 2.1 x10^3/uL (1.0-4.8) Monocytes # (Auto) 0.8 x10^3/uL (0.0-1.1) 1.0 x10^3/uL (0.0-1.1) Eosinophils # (Auto) 0.0 x10^3/uL (0.0-0.7) 0.1 x10^3/uL (0.0-0.7) Basophils # (Auto) 0.0 x10^3/uL (0.0-0.2) 0.0 x10^3/uL (0.0-0.2) Sodium Level 138 mmol/L (136-145) 137 mmol/L (136-145) Potassium Level 3.9 mmol/L (3.5-5.1) 3.9 mmol/L (3.5-5.1) Chloride Level 102 mmol/L (98-107) 101 mmol/L (98-107) Carbon Dioxide Level 26 mmol/L (21-32) 27 mmol/L (21-32) Anion Gap 10 (6-14) 9 (6-14) Blood Urea Nitrogen 11 mg/dL (8-26) 13 mg/dL (8-26) Creatinine 0.9 mg/dL (0.7-1.3) 1.0 mg/dL (0.7-1.3) Estimated GFR (Cockcroft-Gault) 107.6 95.3 Glucose Level 161 mg/dL (70-99) 156 mg/dL (70-99) Calcium Level 9.8 mg/dL (8.5-10.1) 9.3 mg/dL (8.5-10.1) Glucose (Fingerstick) 170 mg/dL (70-99) 154 mg/dL (70-99) Test 01/24/19 16:46 01/24/19 21:05 01/25/19 07:44 Glucose (Fingerstick) 216 mg/dL (70-99) 193 mg/dL (70-99) 170 mg/dL (70-99) Laboratory Tests Test 01/24/19 10:50 01/24/19 16:46 01/24/19 21:05 01/25/19 07:44 Glucose (Fingerstick) 154 mg/dL (70-99) 216 mg/dL (70-99) 193 mg/dL (70-99) 170 mg/dL (70-99) Problem List Problems Medical Problems: (1) Pilonidal abscess Status: Acute Assessment/Plan s/p I&D wound care DESTINEE [employer] Jan 25, 2019 09:55
[2019-01-25] MEDS: ENOXAPARIN 40 MG/0.4 ML SYRINGE. SQ SCH (10:47)
[2019-01-25 11:00] VITALS: BP 121/58
[2019-01-25] MEDS ORDERED: SENN-22 PO (11:09)
[2019-01-25] MEDS ORDERED: LISI2.5T PO (11:09)
[2019-01-25] MEDS ORDERED: METF850T8 PO (11:09)
[2019-01-25] MEDS ORDERED: HYDR-2761 PO (11:09)
[2019-01-25] MEDS ORDERED: IBUP-1007 PO (11:09)
[2019-01-25] MEDS ORDERED: METF10007 PO (14:32)
--- NOTE | 2019-01-25 15:12 | NUR ---
Wound care: Patient seen per wound care consult. Patient is s/p I & D of abscess to coccyx, pilonidal abscess. Dressing removed and wound cleansed, assessed, measured, and photographed. Recommendations to pack with [place] packing, cover with ABD pad, and tape. Mother at bedside for education on dressing changes. Dressing applied and patient tolerated well. Patient to follow up with Dr. Lima after discharge as instructed too. Bed lowered and call light in reach.
--- NOTE | 2019-01-25 15:19 | NUR ---
Discharge instructions and belongings reviewed with patient, verbalized understanding. Patient was escorted out of hospital via ambulation by this RN.
--- NOTE | 2019-01-27 15:08 | PATHOLOGY ---
[facility] Accession Number: [id number] . 01 Material submitted: . buttock - PILONIDAL ABSCESS . 01 Clinical history: . Pilonidal abscess . 02 Diagnosis: Skin and subcutaneous tissue, pilonidal cyst "abscess", buttock, excision: - Findings consistent with pilonidal cyst. . (SKM:mml; 01/27/2019) [facility]/01/27/2019 . 02 Electronically signed: . Ankit Chau MD, Pathologist NPI- [id number] . 01 Gross description: . The specimen is received in formalin, labeled "Alfonso Jan, pilonidal cyst". The specimen is additionally labeled on the requisition as, "pilonidal abscess". Received is an ellipse of pale pepe skin with attached underlying soft tissue measuring 1.7 x 0.7 x 0.8 cm in greatest dimensions. Sectioning reveals pale pepe to pink-monroe cut surfaces. The specimen is longitudinally bisected and entirely submitted in cassette A1. ([facility]; 01/26/2019) QAC/QAC . 02 Pathologist provided ICD-10: L05.91 . 02 CPT . 775774 Specimen Comment: A courtesy copy of this report has been sent to Specimen Comment: [phone], , . Specimen Comment: Report sent to ,DR DOUGHERTY / DR GALLEGO Performed at: 01 [facility] [address], [place], [place] [id number] MD Justin Lara MD Phone: [phone] Performed at: 02 [facility] [address] [place], [place] [id number] MD Armando Oconnor MD Phone: [phone]
== END 2019-01-25 15:25 | disposition home or self-care (01) | DRG 603 ==
LOC: ER 14:36 → 4 NORTH 16:43
PROVIDERS: ADMIT Family Medicine; ATTEND Family Medicine
PROC: 0H98XZZ Drainage of Buttock Skin, External Approach (ICD-10-PCS; principal; 2019-01-24 09:47)
DX: L05.01 Pilonidal cyst with abscess (principal); E11.9 Type 2 diabetes mellitus without complications; E66.01 Morbid (severe) obesity due to excess calories; Z79.84 Long term (current) use of oral hypoglycemic drugs; Z82.49 Family history of ischemic heart disease and other diseases of the circulatory system
CPT/HCPCS: 36415; 80048; 82962; 85025; 87040; 87071; 87075; 88304; 94760; 96374; A7015; J0696; J1100; J1815; J2001; J2270; J2405; J2704; J2710; J3010; J3490; J7030; J7120; 99285-25; A4461